=== PATIENT | male | born 1950 | race Two or more races ===

== ENCOUNTER 2023-09-06 16:19 | Emergency (ER) | payer OTHER, BC ==
[2023-09-06 16:48] VITALS: BP 131/86; PULSE 87; RESP 18; TEMP 97.9; BMI 22.4
[2023-09-06] MEDS ORDERED: ACETAMINOPHEN 325 MG TABLET (FP) PO ONE (16:56)
[2023-09-06] MEDS ORDERED: ACETAMINOPHEN 325 MG TABLET (FP) ONE (17:01)
== END 2023-09-06 18:49 | disposition home or self-care (01) ==
LOC: FER 16:19
DX: R51.9 Headache, unspecified (principal); J01.00 Acute maxillary sinusitis, unspecified; R09.81 Nasal congestion; R05.9 Cough, unspecified; Z20.822 Contact with and (suspected) exposure to COVID-19
CPT/HCPCS: 0241U-QW; 70450-TC; 99284-25

== ENCOUNTER 2025-04-05 15:33 | Emergency (ER) | payer OTHER, BC ==
[2025-04-05 15:45] VITALS: BP 135/86; PULSE 108; RESP 16; TEMP 100; BMI 22.4
[2025-04-05 15:52] LABS: EPITHELIAL CELLS FEW /hpf
[2025-04-05] MEDS: LACTATED RINGERS SOLUTION 1000 ML INFUS.BAG IV ONE (16:25)
[2025-04-05] MEDS ORDERED: ACETAMINOPHEN INJECTION 100 ML ONE (16:26)
[2025-04-05] MEDS: ACETAMINOPHEN 1000 MG/100 ML BAG IVPB ONE (16:28)
[2025-04-05 16:45] LABS: HEMATOCRIT 35.5 % (40.1-51.0); HEMOGLOBIN 11.7 g/dL (13.7-17.5); MEAN CELL VOLUME 85.3 fl (79.0-92.2); MEAN PLT VOLUME 9.2 fl (9.4-12.4); PLATELET COUNT 213 x10^3/uL (163-337); RDW 13.1 % (12.2-16.6); WHITE BLOOD COUNT 10.2 x10^3/uL (4.23-9.07)
[2025-04-05] MEDS ORDERED: cefTRIAXone SODIUM 1 GM VIAL ONE (16:45)
[2025-04-05 16:58] LABS: ALBUMIN 3.8 g/dl (3.4-5.0); BILIRUBIN,TOTAL 0.5 mg/dl (0.2-1); CALCIUM 8.8 mg/dl (8.5-10.1); MAGNESIUM 1.7 mg/dL (1.8-2.4); POTASSIUM 4.1 mmol/L (3.5-5.1); TOT PROT 5.6 g/dl (6.4-8.2)
[2025-04-05] MEDS: CEFTRIAXONE 1 GM in DEXTROSE 5%-WATER - 100 ML IVPB ONE (17:05)
== END 2025-04-05 20:02 | disposition home or self-care (01) ==
LOC: FER 15:33
PROC: 3E03329 Introduction of Other Anti-infective into Peripheral Vein, Percutaneous Approach (ICD-10-PCS; principal; 2025-04-05)
PROC: 3E033NZ Introduction of Analgesics, Hypnotics, Sedatives into Peripheral Vein, Percutaneous Approach (ICD-10-PCS; 2025-04-05)
DX: N39.0 Urinary tract infection, site not specified (principal); R35.0 Frequency of micturition; R10.30 Lower abdominal pain, unspecified
CPT/HCPCS: 36415; 74176-TC; 80053; 81003; 81015; 83605; 83735; 85025; 87040; 87086; 96365; 96375; 99285-25